=== PATIENT | female | born 1955 | race Caucasian/White ===

== ENCOUNTER 2025-03-18 08:16 | Day surgery (SDC) | payer MEDICARE ==
--- NOTE | 2025-03-18 07:35 | HP ---
HISTORY: Patient is a 69-year-old who needs screening colonoscopy. Last colonoscopy was more than 20 years ago. No bloody stools. No change in bowel habits. Family history negative for colon cancer. 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 PAST MEDICAL HISTORY: History of tongue cancer in the past, had cataract surgery in the past, history of DVT and depression in the past. PAST SURGICAL HISTORY: Surgery for tongue cancer and cataract in the past. HOME MEDICATIONS: Magnesium, sertraline, folic acid, and Xarelto. ALLERGIES: Morphine. FAMILY HISTORY: Cancer and heart disease. SOCIAL HISTORY: No smoking. No alcohol abuse. REVIEW OF SYSTEMS: Twelve systems reviewed. No chest pain or palpitations. Other systems negative or noncontributory as above and per preadmission questionnaire. PHYSICAL EXAMINATION: GENERAL: No acute distress. VITAL SIGNS: Height 5 feet 8 inches. BMI 23.57. HEENT: Sclerae nonicteric. NECK: No JVD. CHEST: Equal excursion. Nonlabored breathing. CARDIOVASCULAR: Regular rate and rhythm. ABDOMEN: Soft. EXTREMITIES: No cyanosis or edema. NEUROLOGIC: Alert and oriented. Moving all extremities symmetrically. PSYCHIATRIC: Appropriate mood and affect. SKIN: Dry. RECTAL: Deferred until time of endoscopy exam. IMPRESSION: Need for screening colonoscopy. Cook she is a candidate. She was shown the risk sheet. Explained the procedure in detail including, but not limited to, bleeding or infection; risk of bowel injury or perforation, possibly requiring need for other procedure; risk of missed or non-diagnosis or incomplete exam, possibly requiring other procedures or referral; risk of anesthesia or sedation; risk of bowel prep, but not limited to, and possibly need for barium enema. We will proceed with outpatient screening colonoscopy under MAC anesthesia. Otherwise, continue medications for depression. She will hold her blood thinners.
[2025-03-18] MEDS ORDERED: Lactated Ringers 1,000 ML IV ONE (08:17)
[2025-03-18 08:32] VITALS: RESP 16
[2025-03-18] MEDS: Lactated Ringers 1,000 ML IV SCH (09:38)
[2025-03-18 10:04] LABS: Calcium 9.6 mg/dL (8.4-10.2); Carbon Dioxide 26.0 mmol/L (22-30); Creatinine 1 1.02 mg/dL (0.52-1.04); EST GLOMERULAR FILTRATION RATE 59.2 ML/MIN; Glucose 91.0 mg/dL (74-106); Potassium 4.6 mmol/L (3.5-5.1)
[2025-03-18] MEDS ORDERED: propofoL IV ONE ×2 (10:45→11:04)
[2025-03-18] MEDS ORDERED: Versed 2 MG/2 ML Injection ONE (10:45)
[2025-03-18 11:49] VITALS: BP 157/84; PULSE 56; TEMP 97.4; O2SAT 99
--- NOTE | 2025-03-20 10:56 | OP ---
SURGERY DATE/TIME: 03/18/2025 [id number] PREOPERATIVE DIAGNOSIS: Need for screening colonoscopy. POSTOPERATIVE DIAGNOSES: 1) ASA class III. 2) Limited bowel prep. 3) Diverticulosis left colon. 4) Small early sigmoid colon polyp versus hyperplastic lesion. 5) Pathology pending. PROCEDURES: 1) Colonoscopy to the cecum. 2) Hot biopsy polypectomy sigmoid colon polyp versus hyperplastic lesion. SURGEON: Artemio Garcia MD. ANESTHESIA: MAC. ESTIMATED BLOOD LOSS: Minimal. INDICATIONS: Consent obtained. DESCRIPTION OF PROCEDURE AND FINDINGS: Patient was taken to the endoscopy room. She had several enemas preoperatively. They felt she was reasonable enough to send over to proceed with colonoscopy. MAC anesthesia induced. After official time-out and no disagreement in planned procedure, digital rectal exam did not reveal any rectal masses. Videocolonoscope was inserted and passed up through the somewhat tortuous sigmoid across descending, transverse, and ascending colon. She had a large amount of liquidy stool with a little bit of soft stool that limited exam. Overall fair, limited bowel prep. It took some time, but slowly and carefully the scope was able to be passed around the transverse colon, ascending colon, and cecum. Appendiceal orifice and valve well visualized, photo documented. Prep overall was again on the limited side. Scope was carefully withdrawn over the next more than 12 to 15 minutes. Suction irrigated out as well as possible slowly and carefully. There were no signs of any large polyps, mass, obstruction, or lesion. She had moderate diverticulosis along the left colon. She did have a polyp in the proximal sigmoid colon that was removed with hot biopsy forceps. Whether this is a hyperplastic versus early adenomatous is unclear. It was removed with hot biopsy forceps. Good hemostasis was noted. Otherwise, no signs of any other large polyps, masses, obstruction, or lesions. Scope was withdrawn. We did notice some small internal hemorrhoids. There were no immediate complications. They said she did not have any family to discuss with initially. I will see her back in the office in a couple of weeks for results.
== END 2025-03-18 11:59 | disposition home or self-care (01) ==
LOC: SDC 08:16
PROVIDERS: ATTEND Surgery
DX: Z12.11 Encounter for screening for malignant neoplasm of colon (principal); Z85.89 Personal history of malignant neoplasm of other organs and systems; K57.30 Diverticulosis of large intestine without perforation or abscess without bleeding; K63.5 Polyp of colon